=== PATIENT | male | born 1995 | race Caucasian/White ===

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

== ENCOUNTER 2017-10-29 20:42 | Emergency (ER) | payer BC ==
[2017-10-29 20:56] VITALS: BP 155/70
--- NOTE | 2017-10-29 20:56 | UC ---
Skin Complaint HPI - HPI Summary HPI Summary: Pt presents with rash to torso and UEs that started about 3 hours ago. He tells me that he ate Easter dinner of familiar food that he has had before - about 1/ 2 hour after he developed a red itchy rash to his abdomen that spread to his arms. Has not taken anything for his symptoms. Denies fever, chills, SOB, chest pain, dizziness, or difficulty breathing. - History of Current Complaint Chief Complaint: UCSkin Time Seen by Provider: 10/29/17 20:56 Stated Complaint: RASH Hx Obtained From: Patient Onset/Duration: Sudden Onset Skin Exposure Onset/Duration: Hours Ago Timing: Constant Current Severity: None Pain Intensity: 0 - Allergy/Home Medications Allergies/Adverse Reactions: Allergies Allergy/AdvReac Type Severity Reaction Status Date / Time No Known Allergies Allergy Verified 10/29/17 20:54 Review of Systems Constitutional: Negative Skin: Rash Eyes: Negative ENT: Negative Respiratory: Negative Cardiovascular: Negative Gastrointestinal: Negative Neurovascular: Negative Musculoskeletal: Negative Neurological: Negative Psychological: Negative All Other Systems Reviewed And Are Negative: Yes PMH/Surg Hx/FS Hx/Imm Hx Previously Healthy: Yes - Surgical History Surgical History: Yes Surgery Procedure, Year, and Place: TONSILECTOMY - Family History Known Family History: Positive: Unknown - Social History Occupation: Student Lives: With Family Alcohol Use: Weekly Substance Use Type: None Smoking Status (MU): Never Smoked Tobacco Physical Exam - Summary Physical Exam Summary: GENERAL: NAD. WDWN. No pain distress. SKIN: Mildly erythematous slightly raised patches on abdomen and b/l UEs. No drainage, bleeding, or skin breakdown. HEENT: Head: AT/NC Eyes: EOM intact. Conjunctiva clear without inflammation or discharge. Throat: Posterior oropharynx without exudates, erythema, or edema. Uvula midline. NECK: Supple. Nontender. No lymphadenopathy. CHEST: CTAB. No r/r/w. No accessory muscle use. Breathing comfortably and in no distress. CV: RRR. Without m/r/g. Pulses intact. Brisk cap refill. NEURO: Alert. CN II-XII grossly intact. PSYCH: Age appropriate behavior. Triage Information Reviewed: Yes Vital Signs: Initial Vital Signs Temp 97.8 F 10/29/17 20:46 Pulse 77 10/29/17 20:46 Resp 16 10/29/17 20:46 BP 155/70 10/29/17 20:46 Pulse Ox 100 10/29/17 20:46 Course/Dx - Course Course Of Treatment: Urticaria - prednisone and OTC benadryl. Go to ED if symptoms worsen or continue to progress. - Diagnoses Provider Diagnoses: urticaria Discharge - Sign-Out/Discharge Documenting (check all that apply): Discharge - Discharge Plan Condition: Stable Disposition: HOME Prescriptions: predniSONE TAB* [Deltasone TAB*] 50 mg PO DAILY #4 tab Patient Education Materials: Urticaria (ED) Referrals: Sandy Nino MD [Primary Care Provider] - Additional Instructions: If you develop a fever, shortness of breath, chest pain, new or worsening symptoms - please call your PCP or go to the ED. 1) Please take OTC Benadryl to help with the swelling, redness, and itch - Billing Disposition and Condition Condition: STABLE Disposition: HOME
[2017-10-29] MEDS ORDERED: predniSONE TAB* 50 MG PO ONE (21:01)
[2017-10-29] MEDS ORDERED: predniSONE TAB* 20 MG PO ONE (21:02)
== END 2017-10-29 21:09 | disposition home or self-care (01) ==
LOC: UCCORT 20:42
DX: L50.9 Urticaria, unspecified (principal)
CPT/HCPCS: 99212; G0463; J7512